=== PATIENT | female | born 1975 | race Caucasian/White ===

== ENCOUNTER → 2020-07-05 | Outpatient (CLI) | payer OTHER | LOC: RAD 12:05 | DX: M54.5 Low back pain (principal); M25.551 Pain in right hip; M25.552 Pain in left hip; M51.37 Other intervertebral disc degeneration, lumbosacral region; M16.0 Bilateral primary osteoarthritis of hip | CPT/HCPCS: 72110; 73522 ==

== ENCOUNTER 2020-08-10 18:25 | Emergency (ER) | payer OTHER | END 2020-08-10 19:30 | disposition left against medical advice (07) | LOC: ER1 18:25 | DX: Z53.21 Procedure and treatment not carried out due to patient leaving prior to being seen by health care provider (principal) ==

== ENCOUNTER 2021-04-22 12:33 | Emergency (ER) | payer OTHER | END 2021-04-22 15:00 | disposition home or self-care (01) | LOC: ER1 12:33 | DX: R10.9 Unspecified abdominal pain (principal); R11.10 Vomiting, unspecified; I10 Essential (primary) hypertension; Z88.0 Allergy status to penicillin; E11.9 Type 2 diabetes mellitus without complications; E78.5 Hyperlipidemia, unspecified; Z91.040 Latex allergy status | CPT/HCPCS: 99283 ==